=== PATIENT | female | born 2000 | race African-American/Black ===

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

== ENCOUNTER 2021-08-15 10:06 | Emergency (ER) | payer MEDICAID ==
[~2021-08-15] VITALS: Ht 160 cm; Wt 43.0 kg
[2021-08-15] MEDS ORDERED: KETOROLAC 30MG/ML VIAL IM ONE (13:15)
[2021-08-15 14:07] LABS: CHLORIDE 110 mEq/L (98-107)
[2021-08-15 14:10] LABS: CLARITY URINE CLEAR (CLEAR); COLOR URINE YELLOW (YELLOW); KETONES URINE TRACE (NEGATIVE); LEUKOCYTE ESTERASE URINE NEGATIVE (NEGATIVE); NITRITE URINE NEGATIVE (NEGATIVE); OCCULT BLOOD URINE NEGATIVE (NEGATIVE); PROTEIN URINE TRACE (NEGATIVE); SPECIFIC GRAVITY URINE 1.028 (1.005-1.030)
[2021-08-15 14:27] LABS: BASOPHILS % 0.5 % (0.0-2.0); EOSINOPHILS % 0.4 % (0.0-5.0); HEMATOCRIT. 34.5 % (36.0-48.0); HEMOGLOBIN. 10.8 g/dL (12.0-16.0); LYMPHOCYTES % 46.8 % (20.0-50.0); MEAN CORPUSCULAR HEMOGLOBIN 24.1 pg (28.0-32.0); MEAN PLATELET VOLUME 9.3 fl (7.4-10.4); MONOCYTES % 9.2 % (2.0-8.0); NEUTROPHILS % 43.1 % (40.0-76.0); PLATELET 218 x1000/uL (130-400); RED BLOOD CELL COUNT 4.48 mill/uL (4.2-5.4); RED CELL DISTRIBUTION WIDTH 18.4 % (11.6-14.6)
[2021-08-15] MEDS ORDERED: IBUP-2028 MT (16:24)
[2021-08-15 17:09] VITALS: BP 115/74
[2021-08-19 04:07] LABS: NEISSERIA GONORRHOEAE NAA Negative (Negative)
== END 2021-08-15 17:11 | disposition home or self-care (01) ==
LOC: ER 10:06
DX: R10.2 Pelvic and perineal pain (principal); J45.909 Unspecified asthma, uncomplicated
CPT/HCPCS: 36415; 76830; 76856; 80053; 81003; 81025; 83690; 85025; 87210; 87491; 87591; 96372; 99284; J1885; Z7610